=== PATIENT | male | born 1965 | race Caucasian/White ===

== ENCOUNTER 2024-07-22 14:57 | Emergency (ER) | payer SELFPAY ==
[2024-07-22] MEDS ORDERED: AMLODIPINE 10 MG TAB ONE (15:32)
[2024-07-22] MEDS ORDERED: LIDOCAINE 1% MPF 5 ML VIAL ONE (15:32)
[2024-07-22] MEDS ORDERED: TDAP (DIPHTH,PERTUSS(ACELL),TET VAC) 0.5 ML VIAL IMVAC ONE (15:32)
--- NOTE | 2024-07-22 17:11 | RAD REPORT ---
EXAM: CT Head Brain Wo Cont HISTORY: TRAUMA COMPARISON: None TECHNIQUE: Multiple contiguous axial images were obtained for a CT of the brain without contrast. Sag ittal and coronal reformats were performed. One or more of the following dose reduction techniques were used: Automated exposure control, adjus tment of the mA and kV according to patient size, and iterative reconstruction. Unless otherwise specified, incidental findings do not require dedicated imaging follow-up. FINDINGS: No evidence of hydrocephalus, intracranial hemorrhage, or extra-axial fluid collection. The brain is normal in morphology. Questionable mildly hyperdense signal along a branch of the right MCA within the sylvian fissure, non specific and could relate to beam hardening artifact. The calvarium is intact. The visualized paranasal sinuses and mastoid air cells are essentially clear . IMPRESSION: No evidence of acute intracranial abnormality. Questionable subtle vessel hyperdensity of the right MCA branch within the sylvian fissure, could be artifactual. Please correlate for any clinical evidence of acute stroke. THIS REPORT CONTAINS FINDINGS THAT MAY BE CRITICAL TO PATIENT CARE. The findings were verbally commun icated via telephone to KONRAD Khan on 07/22/2024 5:08 PM.
--- NOTE | 2024-07-22 17:33 | EDPHYS ---
Physician Documentation [facility] Name: Bry Torres Jr Age: 59 yrs Sex: Male : 1965 Arrival Date: 07/22/2024 Time: 14:57 Bed 12 Private MD: ED Physician Avinash Galindo HPI: 07/22 15:18 This 59 yrs old Male presents to ER via Ambulatory with complaints of Fell off ladder, sb4 forehead laceration. 15:18 The patient has a laceration related to: working, occurred outdoors, and there are no sb4 complicating factors. The injury was accidental. The laceration(s) is(are) located on the outer aspect of right eyebrow. Onset: The symptoms/episode began/occurred just prior to arrival. 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 states he his his face on the ladder then onto the ground. denies any loc. not on any blood thinners. no dizziness or headache. Historical: - Allergies: 15:03 No Known Allergies; ll1 - PMHx: 15:03 Hypertensive disorder; ll1 - PSHx: 15:03 None; ll1 - Immunization history:: Adult Immunizations up to date. - Infectious Disease History:: Denies. - Social history:: Smoking status: Patient denies any tobacco usage or history of. ROS: 15:19 Constitutional: Negative for fever, chills, and weight loss, sb4 15:19 Skin: Positive for laceration(s), of the outer aspect of right eyebrow, 15:19 All other systems are negative, Exam: 15:19 Constitutional: This is a well developed, well nourished patient who is awake, alert, sb4 and in no acute distress. Eyes: Extra-ocular motions intact. Periorbital areas with no swelling, redness, or edema. ENT: Mucous membranes moist. Respiratory: No increased work of breathing, no retractions or nasal flaring. Neuro: Awake and alert, GCS 15, oriented to person, place, time, and situation. Motor strength 5/5 in all extremities. Sensory grossly intact. 15:19 Head/face: Noted is a laceration(s), that is jagged, 3 cm(s), of the outer aspect of right eyebrow, 15:28 Eyes: Pupils: equal, round, and reactive to light and accomodation, sb4 Vital Signs: 15:03 BP 157 / 106; Pulse 95; Resp 17; Temp 97.2; Pulse Ox 97% ; Weight 76.2 kg; Height 5 ft. ll1 6 in. ; Pain 0/10; 15:03 Body Mass Index 27.12 (76.20 kg, 167.64 cm) ll1 15:03 Pain Scale: Adult ll1 Laceration: 17:30 Wound Repair of 3cm ( 1.2in ) subcutaneous laceration to outer aspect of right eyebrow. sb4 Irregularly shaped.. Distal neuro/vascular/tendon intact. Anesthesia: Local anesthetic administered with 3 mls of 1% lidocaine. Wound prep: Simple cleansing with hibiclenz by me, Wound irrigation with saline by me, Wound explored, Copious irrigation. Skin closed with 3 6-0 Prolene using simple sutures and sterile technique. Patient tolerated well. MDM: 15:06 Medical Screening Exam initiated sb4 17:30 Data reviewed: vital signs, nurses notes, radiologic studies, and as a result, I will sb4 discharge patient. Counseling: I had a detailed discussion with the patient and/or guardian regarding the historical points, exam findings, and any diagnostic results supporting the discharge/admit diagnosis, radiology results, the need for outpatient follow up, for suture removal in 5-7 days, to return to the emergency department if symptoms worsen or persist or if there are any questions or concerns that arise at home. 07/22 15:17 Order name: Head Brain Wo Cont CT; Complete Time: 17:14 sb4 Administered Medications: 15:35 Drug: Boostrix Tdap IM 0.5 ml IM once; as a single dose Route: IM; Site: right deltoid; ll1 15:35 Drug: amLODIPine PO 10 mg PO once Route: PO; ll1 15:35 Drug: Lidocaine Infiltration (1 %) 5 ml 5 ml Infiltration once; to bedside {Note: by Cynthia FRANCO} Volume: 5 ml; Route: Infiltration; Disposition: 20:53 Co-signature as Attending Physician, Avinash Galindo MD I reviewed the patient's care rt provided by the Advanced Practice Provider and agree with the diagnosis and treatment plan. Disposition Summary: 07/22/24 17:32 Discharge Ordered Notes: Location: Home sb4 Problem: new sb4 Symptoms: have improved sb4 Condition: Stable sb4 Diagnosis - Laceration without foreign body of right eyebrow/buddhism sb4 - Fall (on)(from) incline sb4 - Essential (primary) hypertension sb4 Followup: sb4 - With: Private Physician - When: 1 week - Reason: Staple/Suture removal Discharge Instructions: - Discharge Summary Sheet sb4 - Hypertension, Adult, [id number] sb4 - Laceration Care, Adult, [id number] sb4 - Head Injury, Adult, [id number] sb4 Forms: - Patient Portal Instructions sb4 - Leadership Thank You Letter sb4 Prescriptions: - amlodipine 10 mg Oral tablet - take 1 tablet ORAL route daily; 30 tablet; Refills: 0, Product Selection sb4 Permitted Signatures: Dispatcher [employer] Odette Walker RN RN ll1 Lori Tran PA-C PA-C sb4 Avinash Galindo MD MD rt Corrections: (The following items were deleted from the chart) 15:20 15:18 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 states he his his face on the ladder then onto the ground . sb4 15:30 15:17 Wound Care ordered. sb4 sb4
--- NOTE | 2024-07-22 17:33 | ER ---
Nurse's Notes [facility] Name: Bry Torres Jr Age: 59 yrs Sex: Male : 1965 Arrival Date: 07/22/2024 Time: 14:57 Bed 12 Private MD: Diagnosis: Laceration without foreign body of right eyebrow/mandaeism;Fall (on)(from) incline;Essential (primary) hypertension Presentation: 07/22 15:03 Chief complaint: Patient states: Leaned to far while on ladder cleaning the [place]. ll1 Fell off ladder. Laceration R eyebrow. Slight L ribs pain. No blood thinners No LOC. Coronavirus screen: Client denies travel out of the [place] in the last 14 days. At this time, the client does not indicate any symptoms associated with coronavirus-19. Ebola Screen: Patient denies travel to an Ebola-affected area in the 21 days before illness onset. Initial Sepsis Screen: Does the patient meet any 2 criteria? No. Patient's initial sepsis screen is negative. Does the patient have a suspected source of infection? No. Patient's initial sepsis screen is negative. Risk Assessment: Do you want to hurt yourself or someone else? Patient reports no desire to harm self or others. Onset of symptoms was July 22, 2024. 15:03 Method Of Arrival: Ambulatory ll1 15:03 Acuity: DINESH 3 ll1 Triage Assessment: 15:03 General: Appears in no apparent distress. Behavior is calm, cooperative, appropriate ll1 for age. Pain: Denies pain. Derm: Reports abrasions on face. <1 cm laceration R eyebrow. Musculoskeletal: Reports pain in L ribs. Injury Description: Head injury Bruise. Historical: - Allergies: 15:03 No Known Allergies; ll1 - PMHx: 15:03 Hypertensive disorder; ll1 - PSHx: 15:03 None; ll1 - Immunization history:: Adult Immunizations up to date. - Infectious Disease History:: Denies. - Social history:: Smoking status: Patient denies any tobacco usage or history of. Screenin:13 [facility] ED Fall Risk Assessment (Adult) History of falling in the last 3 months, ll1 including since admission Yes- single mechanical fall (1 pt) Confusion or Disorientation No (0 pts) Intoxicated or Sedated No (0 pts) Impaired Gait No (0 pts) Mobility Assist Device Used No (0 pt) Altered Elimination No (0 pt) Score/Fall Risk Level 0 - 2 = Low Risk Maintained a safe environment, Hourly rounding (assess needs \T\ fall precautionary measures) done. Abuse screen: Denies threats or abuse. Nutritional screening: No deficits noted. Tuberculosis screening: No symptoms or risk factors identified. Assessment: 15:40 Reassessment: No changes from previously documented assessment. Patient and/or family ll1 updated on plan of care and expected duration. Pain level reassessed. Patient is alert, oriented x 3, equal unlabored respirations, skin warm/dry/pink. Vital Signs: 15:03 BP 157 / 106; Pulse 95; Resp 17; Temp 97.2; Pulse Ox 97% ; Weight 76.2 kg; Height 5 ft. ll1 6 in. ; Pain 0/10; 15:03 Body Mass Index 27.12 (76.20 kg, 167.64 cm) ll1 15:03 Pain Scale: Adult ll1 ED Course: 14:58 Patient arrived in ED. mr 14:59 [facility] sb4 14:59 Avinash Galindo MD is Attending Physician. sb4 15:03 Arm band placed on Patient placed in an exam room, on a stretcher. ll1 15:05 Triage completed. ll1 15:[address] Head [address] Wo Cont CT In Process Unspecified. EDMS 15:35 Patient has correct armband on for positive identification. Provided Education on: ER ll1 procedures and process. 17:30 Assist provider with laceration repair on outer aspect of right eyebrow that was 2.5 iw cm. or less using sutures. Set up tray. Performed by Lori Tran PA-C Patient tolerated well. 17:41 Shanita Chowdhury, RN is Primary Nurse. iw 17:41 Patient did not have IV access during this emergency room visit. iw Administered Medications: 15:35 Drug: Boostrix Tdap IM 0.5 ml IM once; as a single dose Route: IM; Site: right deltoid; ll1 15:35 Drug: amLODIPine PO 10 mg PO once Route: PO; ll1 15:35 Drug: Lidocaine Infiltration (1 %) 5 ml 5 ml Infiltration once; to bedside {Note: by S. ll1 Brown PA.} Volume: 5 ml; Route: Infiltration; Medication: 16:14 Vaccine Information Statement (VIS) provided today. Questions and/or concerns moer addressed. VIS edition date: January 12, 2021. Outcome: 17:32 Discharge ordered by MD. luna 17:41 Discharged to home ambulatory, iw 17:41 Condition: good 17:41 Discharge instructions given to patient, Instructed on discharge instructions, follow up and referral plans. medication usage, Demonstrated understanding of instructions, follow-up care, medications, Prescriptions given X 1, 17:42 Patient left the ED. iw Signatures: Dispatcher [employer] EDAZ SimsMargarita, Reg Reg mr Shanita Chowdhury, RN RN iw Odette Parra RN RN Lori Pretty, PA-C PAZen luna Corrections: (The following items were deleted from the chart) 15:05 15:03 Acuity: DINESH 4 ll1 ll1 16:14 16:14 VIS not applicable for this client. ll1 ll1
[2024-07-22 18:17] VITALS: BP 157/106; TEMP 97.2; O2SAT 97
== END 2024-07-22 17:42 | disposition home or self-care (01) ==
LOC: ER 14:57
DX: S01.81XA Laceration without foreign body of other part of head, initial encounter (principal); W11.XXXA Fall on and from ladder, initial encounter; I10 Essential (primary) hypertension
CPT/HCPCS: 12052; 70450; 96372; 99284; J2003